=== PATIENT | female | born 1985 | race Caucasian/White ===

== ENCOUNTER 2019-12-08 13:32 | Emergency (ER) | payer OTHER, SELFPAY ==
--- NOTE | 2019-12-08 13:46 | ED.DENTAL ---
HPI - Dental/Oral General Chief complaint: Skin/Abscess/Foreign Body Stated complaint: Swolllen left side of face Time Seen by Provider: 12/08/19 13:46 Source: patient and RN notes reviewed History of Present Illness HPI Narrative: Patient is a 34-year-old female that presents the urgent care with complaints of facial swelling. Patient states that she has had some swelling surrounding the left eye since Wednesday. Patient states it was very severe for the first 2 days and has since gotten better. Patient states she has a long history of cystic acne which started after puberty. Patient states that she has been washing her face with baby soap . Denies any known fever, chills, nausea, vomiting. No other acute complaints. No acute distress noted. Patient read the plan of care. Related Data Home Medications Medication Instructions Recorded Confirmed etonogestrel [Nexplanon] SUBDERMAL 12/08/19 12/08/19 Allergies Allergy/AdvReac Type Severity Reaction Status Date / Time No Known Allergies Allergy Verified 12/08/19 13:51 Review of Systems Review of Systems: Narrative: CONSTITUTIONAL: Denies fever, chills, or sweats. EYES: Denies visual changes, redness, or discharge. ENT: Denies rhinorrhea, congestion, sore throat, or otalgia. CARDIOVASCULAR: Denies chest pain, palpitations, or edema. RESPIRATORY: Denies cough or dyspnea. GASTROINTESTINAL: Denies abdominal pain, nausea, vomiting, or diarrhea. GENITOURINARY: Denies dysuria or hematuria. SKIN: Reports of inflamed swelling and acne. Denies rash or itching. MUSCULOSKELETAL: Denies back pain, joint pain, or myalgia. NEUROLOGIC: Denies headache, numbness, or weakness. All other systems reviewed are negative, except as documented in HPI. PMFSH Comments At the time of my signature, I reviewed and agree with the nursing past medical, surgical, social, and family history. There is no relevant family history pertinent to the patient complaint. Exam Narrative: Exam Narrative: GENERAL: This is a well-nourished, well-developed patient, in no apparent distress. HEAD: normocephalic, atraumatic. EYES: PERRL. Sclera clear/white. Vision is grossly intact. EARS: External ears normal, auditory canals clear and without drainage, TMs normal without perforation. Hearing grossly intact. NOSE: External nose normal with no obvious nasal discharge, nares without redness, no rhinorrhea. THROAT: Mucous membranes moist, posterior pharynx clear. NECK: Neck supple, non-tender without lymphadenopathy, masses or thyromegaly. CARDIOVASCULAR: Regular rate and rhythm without murmurs, gallops, or rubs. RESPIRATORY: Clear to auscultation. Breath sounds equal bilaterally. No wheezes, rales, or rhonchi. SKIN: Extreme scarring to to the face from chronic cystic acne vulgaris, notable edema surrounding areas of impetigo to the upper left eyebrow, right side of the nose, and right chin. Warm, intact with no suspicious lesions or rash, good texture and turgor. NEURO: awake, alert, and oriented to person, place and time. There were no obvious focal neurologic abnormalities. EXTREMITIES: No clubbing, cyanosis, or edema. Course Vital Signs Vital signs: Vital Signs Temperature 99.3 F 12/08/19 13:47 Pulse Rate 75 12/08/19 13:47 Respiratory Rate 16 12/08/19 13:47 Blood Pressure 111/70 12/08/19 13:47 Pulse Oximetry 100 12/08/19 13:47 Temperature 99.3 F 12/08/19 13:47 Pulse Rate 75 12/08/19 13:47 Respiratory Rate 16 12/08/19 13:47 Blood Pressure 111/70 12/08/19 13:47 Pulse Oximetry 100 12/08/19 13:47 Reviewed MDM - Dental/Oral MDM Narrative Medical decision making narrative: Advised the patient not to pick or squeeze on the areas of infection. Use cream as directed to localized areas. Complete oral antibiotic regimen as prescribed. Make sure to eat and drink with the medication. Make sure to use a warm clean washcloth with each facial wash. If you develop any increase in swell
[2019-12-08 13:47] VITALS: BP 111/70; PULSE 75; RESP 16; TEMP 37.4; O2SAT 100
== END 2019-12-08 14:05 | disposition home or self-care (01) ==
PROVIDERS: Emergency Provider Nurse Practitioner Family
DX: L01.00 Impetigo, unspecified (principal); L70.0 Acne vulgaris
CPT/HCPCS: 99213; G0463

== ENCOUNTER 2020-08-19 09:10 | Emergency (ER) | payer OTHER, SELFPAY ==
[2020-08-19 09:20] VITALS: BP 133/80; PULSE 110; RESP 18; TEMP 37.7; O2SAT 99
--- NOTE | 2020-08-19 09:43 | PC.NURSE ---
NO UC ORDERED PER PROVIDER
--- NOTE | 2020-08-19 09:50 | ED.ABDPAIN ---
HPI - Abdominal Pain General Chief Complaint: Urogenital-Female Stated Complaint: poss uti Time Seen by Provider: 08/19/20 09:32 Source: patient and RN notes reviewed Mode of arrival: ambulatory Limitations: no limitations History of Present Illness HPI narrative: Patient presents today complaining of right lower quadrant pain and right flank pain x5 days. States her symptoms started out as some urinary frequency but then progressed to the flank and abdominal pain. She also reports temperature up to 100.6 for the last 4 days. States pain increases with movement and she has been having some difficulty sleeping. Currently rates her pain 8/10. She has been taking Tylenol without much relief. She does also report some intermittent nausea. Denies any additional urinary symptoms to include dysuria, hematuria. Reports history of UTIs as a child, but never has required hospitalization. Denies history of kidney stones. Reports history of ruptured ovarian cyst. Denies history of appendectomy or cholecystectomy. MD elicited complaint: abdominal pain and flank pain Related Data Home Medications Medication Instructions Recorded Confirmed etonogestrel [Nexplanon] See Rx Instructions .ROUTE .COMPLEX 12/08/19 12/08/19 Allergies Allergy/AdvReac Type Severity Reaction Status Date / Time No Known Allergies Allergy Verified 08/19/20 09:31 Review of Systems Review of Systems: Narrative: CONSTITUTIONAL: Denies body aches, chills, or sweats.+ Fever EYES: Denies visual changes, redness, or discharge. ENT: Denies rhinorrhea, congestion, sore throat, or otalgia. CARDIOVASCULAR: Denies chest pain, palpitations, or edema. RESPIRATORY: Denies cough or dyspnea. GASTROINTESTINAL: Denies vomiting, or diarrhea.+ Pain, nausea, flank pain GENITOURINARY: Denies dysuria or hematuria.+ Urinary frequency SKIN: Denies rash, itching, or wounds. MUSCULOSKELETAL: Denies back pain, joint pain, or myalgia. NEUROLOGIC: Denies headache, numbness, tingling, or weakness. PSYCH: Denies depression or anxiety. PMFSH Comments At time of signature, I have reviewed and agree with nursing past medical, surgical, social and family history unless otherwise noted. Please see nursing chart for further information. There is no relevant family history pertinent to the presenting complaint Exam Narrative: Exam Narrative: GENERAL: Mildly ill-appearing, well-nourished, and in no acute distress. HEAD: Normocephalic, atraumatic. EYES: EOMI. No redness or drainage. Conjunctivae normal. ENT: Mucous membranes pink and moist. NECK: Normal AROM. CHEST: No respiratory distress. Clear to auscultation. HEART: Regular rhythm. + Tachycardia. No murmur appreciated. Normal peripheral pulses. ABDOMEN: Soft, , nondistended, normal active bowel sounds.+ Right lower quadrant tenderness.+ Right CVA tenderness. MUSCULOSKELETAL: No bony tenderness. EXTREMITIES: Normal range of motion. No edema. SKIN: Warm, dry, no rash. Capillary refill normal. Normal skin turgor. NEURO: No focal deficits. Alert and oriented x3. Gait steady. PSYCH: Normal affect. No signs of depression or anxiety. Course Vital Signs Vital signs: Vital Signs Temperature 99.8 F H 08/19/20 09:20 Pulse Rate 110 H 08/19/20 09:20 Respiratory Rate 18 08/19/20 09:20 Blood Pressure 133/80 08/19/20 09:20 Pulse Oximetry 99 08/19/20 09:20 Temperature 99.8 F H 08/19/20 09:20 Pulse Rate 110 H 08/19/20 09:20 Respiratory Rate 18 08/19/20 09:20 Blood Pressure 133/80 08/19/20 09:20 Pulse Oximetry 99 08/19/20 09:20 Reviewed. Pt has been instructed to follow up with her PCP regarding her elevated blood pressure today. Transfer Transfered to: [facility]) Transfer rationale: Abdominal pain, flank pain Accepting physician: Joelle MDM - Abdominal Pain Differential Diagnosis Differential diagnosis: Likely abdominal pain, acute appendicitis, calculus of kidney and other (UTI, pyeloneph
== END 2020-08-19 09:50 | disposition short-term general hospital (02) ==
PROVIDERS: Emergency Provider Nurse Practitioner
DX: R10.31 Right lower quadrant pain (principal)
CPT/HCPCS: 81003; 99212; G0463